=== PATIENT | male | born 1965 | race Caucasian/White ===

== ENCOUNTER 2020-02-20 09:42 | Outpatient (CLI) | payer OTHER ==
--- NOTE | 2020-02-20 10:21 | RAD ---
RIGHT HIP 2 VIEWS: Date: 02/20/2020 HISTORY: Right hip pain, disability evaluation. FINDINGS/IMPRESSION: No fracture, dislocation, or bony destruction seen. No significant arthritic changes are noted. POS: OFF
== END 2020-02-20 09:43 | disposition home or self-care (01) ==
LOC: NAV RAD 09:42
PROVIDERS: ATTEND Internal Medicine
DX: Z02.71 Encounter for disability determination (principal)

== ENCOUNTER 2020-09-18 08:34 | Emergency (ER) | payer MEDICAID, SELFPAY ==
[2020-09-18] MEDS ORDERED: Sodium Chloride 0.9% 1,000 ML ONE (08:55)
[2020-09-18] MEDS ORDERED: Thiamine HCl 200 MG/2 ML VIAL SLOW IVP SCH (09:15)
[2020-09-18] MEDS ORDERED: Folic Acid 1 MG, Multivitamins, Adult 10 ML in Dextrose 5 %-0.45 % NaCl 1,000 ML IV SCH (09:15)
[2020-09-18] MEDS ORDERED: Multivitamins, Adult 10 ML, Thiamine HCl 100 MG, Folic Acid 1 MG in Dextrose 5 %-0.45 %... IV SCH (09:15)
[2020-09-18 09:23] LABS: ALT (SGPT) 20 U/L (8-55); AST (SGOT) 24 U/L (5-34); Albumin 3.3 g/dL (3.5-5.0); Alcohol Less than 10 mg/dL (Less than 10); Alkaline Phosphatase 74 U/L (40-110); Anion Gap 21 mmol/L (10-20); BUN (Urea Nitrogen) 77 mg/dL (8.4-25.7); Bilirubin, Total 1.2 mg/dL (0.2-1.2); Calc. Creatinine Clearance 0 mL/min (70-130); Calcium 9.4 mg/dL (7.8-10.44); Carbon Dioxide 14 mmol/L (22-29); Chloride 102 mmol/L (98-107); Globulin 3.7 g/dL (2.4-3.5); Glucose 132 mg/dL (70-105); Lipase 93 U/L (8-78); Magnesium 2.7 mg/dL (1.6-2.6); Sodium 133 mmol/L (136-145)
[2020-09-18] MEDS ORDERED: Multivit, Adult Inj 10 ML VIAL ONE (09:40)
[2020-09-18] MEDS ORDERED: Thiamine HCl 200 MG/2 ML VIAL ONE (09:40)
[2020-09-18] MEDS ORDERED: Dextrose 5 %-0.45 % NaCl 1,000 ML ONE (09:40)
[2020-09-18 09:51] LABS: #Lymphocytes 1.2 thou/uL (1.20-3.40); #Monocytes 0.6 thou/uL (0.11-0.59); #Neutrophils 5.2 thou/uL (1.40-6.50); %Basophils 0.5 % (0.0-1.0); %Eosinophils 0.4 % (0.0-10.0); %Lymphocytes 16.7 % (21.0-51.0); %Monocytes 8.6 % (0.0-10.0); %Neutrophils 73.7 % (42.0-75.0); Hemoglobin 12.9 g/dL (14.0-18.0); Mean Corpuscular HGB CONC 32.9 g/dL (32.0-36.0); Mean Corpuscular Hemoglobin 32.8 pg (27.0-31.0); Mean Corpuscular Volume 99.7 fL (78.0-98.0); Mean Platelet Volume 12.3 fL (7.4-10.4); Platelet Count 60 thou/uL (130-400); Platelet Morphology Comment Appears Decreased; RBC Distribution Width 10.8 % (11.5-14.5); Red Blood Cell (RBC) Count 3.94 mill/uL (4.70-6.10)
[2020-09-18] MEDS ORDERED: Aspirin Chewable 81 MG TAB ONE (10:48)
[2020-09-18 12:09] LABS: Lactic Acid 1.4 mmol/L (0.5-2.2)
== END 2020-09-18 12:34 | disposition short-term general hospital (02) ==
LOC: NAV ERS 08:34
DX: N17.9 Acute kidney failure, unspecified (principal); F10.20 Alcohol dependence, uncomplicated; E86.0 Dehydration; R41.82 Altered mental status, unspecified; R74.02 Elevation of levels of lactic acid dehydrogenase [LDH]; I95.9 Hypotension, unspecified
CPT/HCPCS: 70450; 71045; 80053; 80307; 83605; 83690; 83735; 84484; 85025; 93005; 94760; 96365; 96366; J3411; J7042; J7050

== ENCOUNTER 2021-01-19 22:14 | Emergency (ER) | payer MEDICAID ==
[2021-01-19 23:17] LABS: Eosinophils 3 % (0-10); Lymphocytes 21 % (21-51); MDiff Complete? YES; Mean Corpuscular HGB CONC 34.7 g/dL (32.0-36.0); Mean Corpuscular Hemoglobin 33.5 pg (27.0-31.0); Mean Corpuscular Volume 96.7 fL (78.0-98.0); Mean Platelet Volume 7.6 fL (7.4-10.4); Monocytes 5 % (0-10); Neutrophil 70 % (42-75); Platelet Count 274 thou/uL (130-400); Platelet Morphology Comment Appears Adequate; RBC Distribution Width 12.7 % (11.5-14.5); RBC Morphology Normal; Red Blood Cell (RBC) Count 4.78 mill/uL (4.70-6.10); White Blood Cell (WBC) Count 10.4 thou/uL (4.8-10.8)
[2021-01-19 23:22] LABS: ALT (SGPT) 44 U/L (8-55); AST (SGOT) 52 U/L (5-34); Albumin 3.4 g/dL (3.5-5.0); Alkaline Phosphatase 91 U/L (40-110); Anion Gap 17 mmol/L (10-20); BUN (Urea Nitrogen) 9 mg/dL (8.4-25.7); Bilirubin, Total 0.8 mg/dL (0.2-1.2); Calc. Creatinine Clearance 0 mL/min (70-130); Calcium 9.6 mg/dL (7.8-10.44); Carbon Dioxide 23 mmol/L (22-29); Chloride 95 mmol/L (98-107); Globulin 4.2 g/dL (2.4-3.5); Glucose 94 mg/dL (70-105); Protein, Total 7.6 g/dL (6.0-8.3); Sodium 131 mmol/L (136-145)
== END 2021-01-20 00:33 | disposition short-term general hospital (02) ==
LOC: NAV ERS 22:14
DX: I70.90 Unspecified atherosclerosis (principal); F17.210 Nicotine dependence, cigarettes, uncomplicated
CPT/HCPCS: 36415; 80053; 85025; 99284

== ENCOUNTER 2021-01-27 09:21 | Emergency (ER) | payer OTHER, SELFPAY ==
[2021-01-27 10:08] LABS: #Basophils 0.1 thou/uL (0.0-0.2); #Eosinphils 0.3 thou/uL (0.0-0.7); #Lymphocytes 2.3 thou/uL (1.20-3.40); #Monocytes 0.7 thou/uL (0.11-0.59); #Neutrophils 5.6 thou/uL (1.40-6.50); %Basophils 1.3 % (0.0-1.0); %Eosinophils 3.2 % (0.0-10.0); %Lymphocytes 25.7 % (21.0-51.0); %Monocytes 7.9 % (0.0-10.0); %Neutrophils 61.8 % (42.0-75.0); Mean Corpuscular HGB CONC 33.3 g/dL (32.0-36.0); Mean Platelet Volume 6.3 fL (7.4-10.4); Platelet Count 290 thou/uL (130-400); RBC Distribution Width 13.3 % (11.5-14.5); Red Blood Cell (RBC) Count 4.54 mill/uL (4.70-6.10); White Blood Cell (WBC) Count 9.1 thou/uL (4.8-10.8)
[2021-01-27 10:22] LABS: ALT (SGPT) 10 U/L (8-55); AST (SGOT) 16 U/L (5-34); Albumin 3.2 g/dL (3.5-5.0); Alkaline Phosphatase 84 U/L (40-110); Anion Gap 12 mmol/L (10-20); BUN (Urea Nitrogen) 8 mg/dL (8.4-25.7); Bilirubin, Total 0.6 mg/dL (0.2-1.2); CRP (Inflammatory) 1.24 mg/dL (= or < 0.5); Calc. Creatinine Clearance 0 mL/min (70-130); Carbon Dioxide 31 mmol/L (22-29); Chloride 99 mmol/L (98-107); Globulin 3.9 g/dL (2.4-3.5); Glucose 79 mg/dL (70-105); Potassium 3.3 mmol/L (3.5-5.1); Protein, Total 7.1 g/dL (6.0-8.3); Sodium 139 mmol/L (136-145)
== END 2021-01-27 12:20 | disposition home or self-care (01) ==
LOC: NAV ERS 09:21
DX: I73.1 Thromboangiitis obliterans [Buerger's disease] (principal); I10 Essential (primary) hypertension; F17.210 Nicotine dependence, cigarettes, uncomplicated
CPT/HCPCS: 80053; 82550; 85025; 86140

== ENCOUNTER 2021-04-17 11:07 | Emergency (ER) | payer SELFPAY | END 2021-04-17 12:25 | disposition home or self-care (01) | LOC: NAV ERS 11:07 | DX: I73.1 Thromboangiitis obliterans [Buerger's disease] (principal); I10 Essential (primary) hypertension; F17.210 Nicotine dependence, cigarettes, uncomplicated ==